=== PATIENT | female | born 1995 | race Two or more races ===

== ENCOUNTER → 2025-08-07 | Outpatient (CLI) | payer OTHER ==
[2025-08-07 13:21] LABS: PLATELET COUNT, AUTOMATED 369 10^3/uL (150-450)
[2025-08-07 14:02] LABS: HIV 1&2 SCREEN NEGATIVE (NEGATIVE)
[2025-08-07 14:09] LABS: HEPATITIS C VIRUS ABY INDEX < 0.02 INDEX (<0.8)
== END ==
LOC: M PLALAB 08:45
PROVIDERS: ATTEND Advanced Practice Midwife
DX: Z34.81 Encounter for supervision of other normal pregnancy, first trimester (principal)